=== PATIENT | female | born 1985 | race Caucasian/White ===

== ENCOUNTER 2019-05-24 21:04 | Emergency (ER) | payer MEDICAID, OTHER ==
[~2019-05-24] VITALS: Ht 160 cm; Wt 56.7 kg
--- NOTE | 2019-05-24 21:18 | NUR ---
ED Nurse Note: Patient has complaints of difficulty breathing ventolin to manage seasonal and pet dander allergies. REcently inhaler not working.
[2019-05-24 21:21] VITALS: BP 128/84
[2019-05-24] MEDS ORDERED: Ipratropium 0.02% Inh Soln 2.5ml UD HHN ONE (21:30)
[2019-05-24] MEDS ORDERED: Albuterol ud Inhalation HHN ONE (21:30)
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
--- NOTE | 2019-05-24 21:41 | NUR ---
ED Nurse Note: Patient tolerating breathing treament well. significant other at bedside, will continue to monitor.
[2019-05-24] MEDS ORDERED: MEDROL DOSEPAK4 MG ORAL (22:23)
[2019-05-24] MEDS ORDERED: ALBUTEROL SULF8.5 GM INH (22:23)
[2019-05-24 22:36] VITALS: BP 128/84
--- NOTE | 2019-05-24 22:36 | NUR ---
ED Nurse Note: PAtient cleared for discharge by ERMD. patient has no s/s of acute distress. PAtient verbalized understanding of discharge instructions, ID band removed. Patient departed with all belongings accompanied by her boyfriend.
--- NOTE | 2019-05-25 10:55 | Diagnostic Imaging Report ---
Indication: Cough, asthma Technique: XRAY Chest 1v Comparison: None Findings: Mild hyperinflation is noted. There is no definite focal airspace consolidation. No pleural effusion or pneumothorax. No radiographic evidence of pulmonary edema. No acute osseous abnormality. Heart size and mediastinal contours within normal limits. IMPRESSION: Mild hyperinflation, nonspecific finding which may be related to given history of asthma. No focal airspace consolidation, pleural effusion or pneumothorax.
== END 2019-05-24 22:36 | disposition home or self-care (01) ==
LOC: EMR 21:51
DX: J06.9 Acute upper respiratory infection, unspecified (principal); R06.02 Shortness of breath; J45.909 Unspecified asthma, uncomplicated; Z79.51 Long term (current) use of inhaled steroids
CPT/HCPCS: 71045; 94640; 94664; J7512; Z7502; 99284